=== PATIENT | female | born 1950 ===

== ENCOUNTER 2018-10-05 21:03 | Inpatient (IN) | payer MEDICARE ==
--- NOTE | 2018-10-05 21:16 | C.PDOC ---
History Of Present Illness Patient presents to the ED c/o dizziness, nausea, neck pain radiating to her left arm that started at 16:00. Patient also c/o left arm numbness and blurred vision.Very anxious. Patient denies fever, chills, vomit, diarrhea, CP, SOB, rash, Time Seen by Provider: 10/05/18 21:16 Chief Complaint (Nursing): Dizziness/Lightheaded History Per: Patient History/Exam Limitations: no limitations Onset/Duration Of Symptoms: Hrs (16:00) Current Symptoms Are (Timing): Still Present Fall Associated With With Symptoms: No Severity: None Recent travel outside of the [place]: No Additional History Per: Patient - Symptoms Of CVA Associated Symptoms: denies: Impaired Speech Recent Aspirin Use: No Current Coumadin Use?: No Recent Head Trauma: No Past Medical History Reviewed: Historical Data, Nursing Documentation, Vital Signs - Medical History PMH: Asthma, Bronchitis, Gastrointestinal Ulcer, Hypercholesterolemia Surgical History: No Surg Hx - [facility] TETANUS TOXOID ADMINIST (01/31/15) Family History: States: No Known Family Hx - Social History Hx Tobacco Use: No Hx Alcohol Use: Yes (''RARELY'') Hx Substance Use: No - Immunization History Hx Tetanus Toxoid Vaccination: No Hx Influenza Vaccination: No Hx Pneumococcal Vaccination: No Review Of Systems Constitutional: Negative for: Fever, Chills Eyes: Positive for: Other (blurry vision) Cardiovascular: Negative for: Chest Pain, Palpitations Respiratory: Negative for: Shortness of Breath Gastrointestinal: Positive for: Nausea. Negative for: Vomiting, Abdominal Pain Musculoskeletal: Positive for: Neck Pain, Arm Pain Skin: Negative for: Rash Neurological: Positive for: Weakness, Dizziness. Negative for: Numbness, Headache Psych: Negative for: Anxiety Physical Exam - Physical Exam Appears: Non-toxic, No Acute Distress Skin: Warm, Dry Head: Normacephalic Eye(s): bilateral: Normal Inspection, PERRL, EOMI Oral Mucosa: Moist Neck: No Midline Cervical Tenderness, Supple Chest: Symmetrical Cardiovascular: Rhythm Regular Respiratory: No Rales, No Rhonchi, No Wheezing Gastrointestinal/Abdominal: Soft, No Tenderness, No Guarding, No Rebound Back: No CVA Tenderness Extremity: No Pedal Edema, No Swelling Extremity: Bilateral: Atraumatic, Normal Color And Temperature, Normal ROM Pulses: Left Dorsalis Pedis: Normal, Right Dorsalis Pedis: Normal Neurological/Psych: Oriented x3, Normal Speech, Normal Cognition Gait: Unable To Assess ED Course And Treatment - Laboratory Results Result Diagrams: 10/05/18 21:23 10/05/18 21:23 ECG: Interpreted By Me, Viewed By Me ECG Rhythm: Sinus Rhythm (81), Nonspecific Changes O2 Sat by Pulse Oximetry: 99 (ON RA) Pulse Ox Interpretation: Normal - CT Scan/US CT head Other Rad Studies (CT/US): Read By Radiologist, Radiology Report Reviewed CT/US Interpretation: XAM: CT Head without Intravenous Contrast. CLINICAL HISTORY: Code stroke. TECHNIQUE: Axial computed tomography images of the head/brain without intravenous contrast. CONTRAST: Without. COMPARISON: None provided. FINDINGS: BRAIN. Chronic periventricular and subcortical microvascular disease is seen. VENTRICLES: There is generalized parenchymal atrophy noted as demonstrated by symmetrical dilatation of ventricles and sulci. ORBITS: The orbits are unremarkable. SINUSES AND MASTOIDS: The paranasal sinuses and mastoid air cells are clear. BONES: No fracture. MISCELLANEOUS: No acute intracranial pathology. IMPRESSION: 1. There is generalized parenchymal atrophy. 2. Mild chronic periventricular and subcortical microvascular disease is seen. 3. No acute intracranial pathology. . Electronically signed on October 05, 2018 9:44:45 PM EDT by: Ray Stewart M.D., M.B.A., Certified By ABR. Fellowship Trained MRI and CT Specialist CTA head Other Rad Studies (CT/US): Read By Radiologist, Radiology Report Reviewed CT/US Interpretation: EXAM: CTA Head and Neck with Intravenous Contrast. CLINICAL HISTORY: Headache, code stroke. TECHNIQUE: Axial CTA images of the head and neck performed with intravenous contrast. MIP reconstructed images were created and reviewed. CONTRAST: With; 100MLS VISI 320 was injected intravenously without incident. COMPARISON: None provided. FINDINGS: VASCULATURE: NECK: COMMON CAROTID ARTERIES. Minimal atherosclerotic plaque at the left common carotid bifurcation. No significant canal stenosis. No dissection or occlusion. EXTERNAL CAROTID ARTERIES. Patent. NECK: INTERNAL CAROTID ARTERIES. No stenosis by NASCET criteria. No dissection or occlusion. VERTEBRAL ARTERIES. No significant canal stenosis. No dissection or occlusion. HEAD: ANTERIOR CEREBRAL ARTERIES. No significant stenosis. No occlusion. No aneurysm. MIDDLE CEREBRAL ARTERIES. No significant stenosis. No occlusion. No aneurysm. POSTERIOR CEREBRAL ARTERIES. No significant stenosis. No occlusion. No aneurysm. BASILAR ARTERY. No significant stenosis. No occlusion. No aneurysm. OTHER: SOFT TISSUES. No acute finding. BONES. No acute osseous abnormality. Moderate-advanced degenerative arthritis is seen within the atlanto-dens interval. IMPRESSION: 1. Minimal atherosclerotic plaque at the left common carotid bifurcation. 2. Unremarkable CTA of the head and neck otherwise. . Electronically signed on October 05, 2018 10:00:43 PM EDT by: Ray Stewart M.D., M.B.A., Certified By ABR. Fellowship Trained MRI and CT Specialist Progress Note: Plan: - Labs. - CT head. - CTA head. - EKG. - IV fluids. - CXR. - UA NIHSS Stroke Scale 2 - Date/Time Evaluation Performed Date Performed: 10/05/18 Time Performed: 21:15 When Was NIHSS Performed: Baseline - How Severe is the Stroke Level of Consciousness: 0=Alert LOC to Questions: 0=Both comments correct LOC to commands: 0=Obeys both correctly Best Gaze: 0=Normal Visual: 0=No visual loss Facial: 0=Normal Motor Arm - Left: 0=No drift Motor Arm - Right: 0=No drift Motor Leg - Left: 0=No drift Motor Leg - Right: 0=No drift Limb Ataxia: 0=Absent Sensory: 0=Normal Best Language: 0=No aphasia Dysarthia: 0=Normal articulation Extinction & Inattention (Neglect): 0=Normal, no object Score: 0 Disposition Discussed With : James Leger Comment: acepted the p ton her service and took over the care at 11:15 PM Doctor Will See Patient In The: Hospital Counseled Patient/Family Regarding: Studies Performed, Diagnosis - Disposition Disposition: HOSPITALIZED Disposition Time: 21:16 Condition: FAIR Forms: [facility] (Greenlandic) - POA Present On Arrival: Poor Glycemic Control - Clinical Impression Clinical Impression: Chest pain, Dizziness, Paresthesia and pain of left extremity - Scribe Statement The provider has reviewed the documentation as recorded by the Scribaravind Gardiner All medical record entries made by the Scribe were at my direction and personally dictated by me. I have reviewed the chart and agree that the record accurately reflects my personal performance of the history, physical exam, medical decision making, and the department course for this patient. I have also personally directed, reviewed, and agree with the discharge instructions and disposition. Decision To Admit - Pt Status Changed To: Hospital Disposition Of: Inpatient - Admit Certification Admit to Inpatient:: After my assessment, the patient will require hospitalization for at least two midnights. This is because of the severity of symptoms shown, intensity of services needed, and/or the medical risk in this patient being treated as an outpatient. - InPatient: Physician Admission Certification: I certify that this patient requires 2 or more midnights of care for the following reason:: After my assessment, the patient will require hospitalization for at least two midnights. This is becau se of the severity of symptoms shown, intensity of services needed, and/or the medical risk in this patient being treated as an outpatient. - . Bed Request Type: Telemetry Admitting Physician: James Leger Patient Diagnosis: Chest pain, Dizziness, Paresthesia and pain of left extremity
[2018-10-05 21:17] VITALS: BMI 29.2
[2018-10-05 21:26] LABS: BASO % 0.4 % (0.0-2.0); EOS # 0.1 K/uL (0.0-0.7); EOS % 1.5 % (0.0-4.0); HEMOGLOBIN 13.9 g/dL (11.0-16.0); LYMPH % 19.7 % (20.0-40.0); MEAN CELL VOLUME 92.1 fL (81.0-99.0); MEAN CORPUSCULAR HGB CONC 33.6 g/dL (33.0-37.0); MEAN PLATELET VOLUME 8.7 fL (7.2-11.7); MONO # 0.4 K/uL (0.0-0.8); MONO % 8.1 % (0.0-10.0); NEUT # 3.6 K/uL (1.8-7.0); NEUT % 70.3 % (50.0-75.0); RBC 4.47 Mil/uL (3.80-5.20); RED CELL DISTRIBUTION WIDTH 13.6 % (11.5-14.5); WHITE BLOOD COUNT 5.2 K/uL (4.8-10.8)
[2018-10-05] MEDS ORDERED: Iodixanol 320 MG/ML 100 ML BOTTLE IV ONE (21:29)
[2018-10-05 21:34] LABS: INR 1.1; PARTIAL THROMBOPLASTIN TIME 38.4 SECONDS (21-34); PROTHROMBIN TIME 11.5 SECONDS (9.7-12.2)
[2018-10-05 21:40] LABS: ALB/GLOB RATIO 1.3 (1.0-2.1); ALBUMIN 4.3 g/dL (3.5-5.0); ALT/SGPT 20 U/L (9-52); AST/SGOT 27 U/L (14-36); BLOOD UREA NITROGEN 10 mg/dL (7-17); CALCIUM 10.5 mg/dl (8.6-10.4); GFR NON-AFRICAN AMERICAN > 60; LIPASE 68 U/L (23-300)
[2018-10-05] MEDS: Sodium Chloride 0.9% 1,000 ML IV SCH (22:00)
[2018-10-05 22:24] LABS: SQUAMOUS EPITHIAL < 1 /hpf (0-5); URINE BILIRUBIN NEGATIVE (NEGATIVE); URINE CLARITY Clear (Clear); URINE COLOR Yellow (YELLOW); URINE GLUCOSE (UA) NORMAL (Normal); URINE LEUKOCYTE ESTERASE NEG Leu/uL (Negative); URINE PROTEIN NEGATIVE (NEGATIVE); URINE UROBILINOGEN NORMAL mg/dL (0.2-1.0)
[2018-10-05 22:25] LABS: URINE BLOOD TRACE (NEGATIVE)
[2018-10-05 22:58] LABS: HDL CHOLESTEROL 51 mg/dL (30-70)
[2018-10-05 23:08] LABS: LDL CHOLESTEROL 155 mg/dL (0-129)
[2018-10-06] MEDS ORDERED: Albuterol-Ipratrop 3 mg / 0.5 (3 ml) UD INH PRN (00:09)
[2018-10-06 07:23] LABS: HDL CHOLESTEROL 36 mg/dL (30-70)
[2018-10-06 07:32] LABS: CK-MB 0.73 ng/mL (0.0-3.38)
[2018-10-06 07:33] LABS: LDL CHOLESTEROL 127 mg/dL (0-129)
--- NOTE | 2018-10-06 08:05 | CT ---
Date of service: 10/05/2018 PROCEDURE: CT HEAD WITHOUT CONTRAST. HISTORY: Code Stroke COMPARISON: 05/09/2016 TECHNIQUE: Axial computed tomography images were obtained through the head/brain without intravenous contrast. Radiation dose: Total exam DLP = 970.64 mGy-cm. This CT exam was performed using one or more of the following dose reduction techniques: Automated exposure control, adjustment of the mA and/or kV according to patient size, and/or use of iterative reconstruction technique. FINDINGS: HEMORRHAGE: No intracranial hemorrhage. BRAIN: No mass effect or edema. Scattered focal lucencies in the subcortical and periventricular white matter suggestive for chronic microvascular ischemic change. Diffuse generalized parenchymal atrophy. VENTRICLES: Unremarkable. No hydrocephalus. CALVARIUM: Unremarkable. PARANASAL SINUSES: Unremarkable as visualized. No significant inflammatory changes. MASTOID AIR CELLS: Unremarkable as visualized. No inflammatory changes. OTHER FINDINGS: None. IMPRESSION: No acute intracranial abnormality. Chronic microvascular ischemic changes. Diffuse generalized parenchymal atrophy. If symptoms persists, consider correlation with MRI. A preliminary report was generated at 9:44 p.m. on 10/05/[address] Ray Stewart from [facility].
[2018-10-06 08:24] VITALS: RESP 20
--- NOTE | 2018-10-06 09:22 | CP.PCM.PN ---
Subjective - Date & Time of Evaluation Date of Evaluation: 10/06/18 Time of Evaluation: 09:22 - Subjective Subjective: H&P dictated #[id number] Objective - Vital Signs/Intake and Output Vital Signs (last 24 hours): Temp Pulse Resp BP Pulse Ox 98.7 F 84 20 136/66 97 10/06/18 08:23 10/06/18 08:23 10/06/18 08:23 10/06/18 08:23 10/06/18 08:23 Intake and Output: 10/06/18 10/06/18 06:59 18:59 Intake Total 800 Balance 800 - Medications Medications: Current Medications Albuterol/Ipratropium (Duoneb 3 Mg/0.5 Mg (3 Ml) Ud) 3 ml INH RQ6 PRN PRN Reason: Shortness of Breath Aspirin (Aspirin) 325 mg PO DAILY [facility] Heparin Sodium (Porcine) (Heparin) 5,000 units SC Q12 [facility] Sodium Chloride (Sodium Chloride 0.9%) 1,000 mls @ 100 mls/hr IV .Q10H [facility] Last Admin: 10/05/18 22:00 Dose: 100 mls/hr Metoprolol Tartrate (Lopressor) 25 mg PO BID [facility] Montelukast Sodium (Singulair) 10 mg PO DAILY [facility] Pneumococcal Polyvalent Vaccine (Pneumovax 23 Vaccine) 0.5 ml IM .ONCE ONE Stop: 10/06/18 10:01 - Labs Labs: 10/05/18 21:23 10/05/18 21:23 PT 11.5 SECONDS (9.7-12.2) 10/05/18 21: INR 1.1 10/05/18 21:23 APTT 38.4 SECONDS (21-34) H 10/05/18 21:23
[2018-10-06] MEDS ORDERED: ALBUTEROL SULFATE PO SCH (10:00)
[2018-10-06] MEDS ORDERED: Pneumococcal 23-Valent Vaccine IM ONE (10:00)
[2018-10-06] MEDS: Sodium Chloride 0.9% 1,000 ML IV SCH ×2 (10:12→17:39)
--- NOTE | 2018-10-06 10:30 | CP.PCM.CON ---
<Brad Kim ValerianoGennaro - Last Filed: 10/06/18 15:44> History of Present Illness - History of Present Illness History of Present Illness: PGY-1 Neurology consult note for Dr Sanders Patient is a 68 year old female with pmhx of asthma, HLD, presenting to ER yesterday for dizziness and left neck pain with bilateral upper extremity weakness. Patient states these symptoms started around 4 pm yesterday when patient was sewing at work. Patient states she felt she could not grab or lift light objects, as she noted object fell off her hands. Patient experienced left side neck pain with pain and tingling radiating down to the left arm. Patient experienced shortness of breath chest pain and nausea along with the mentioned symptoms. Denies falls or LOC this time, but has had history of falls and LOC, last one about 6 months ago. Patient states her left sided neck pain, UE weakness and tingling have improved since admission, admits to swelling in her eyes and dizziness this morning when getting up from bed. Denies headaches, changes in vision or hearing. Denies changes in speech, denies weakness in LE. Denies hx of stroke, [facility] REP infections or seizures. 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 Fhx: stroke ( mother), unspecified cancer (sister) Past Patient History - Past Medical History & Family History Past Medical History?: Yes - Past Social History Smoking Status: Never Smoked - CARDIAC Hx Hypercholesterolemia: Yes - PULMONARY Hx Asthma: Yes Hx Bronchitis: Yes - MUSCULOSKELETAL/RHEUMATOLOGICAL Hx Falls: No - PSYCHIATRIC Hx Substance Use: No - SURGICAL HISTORY Hx Surgeries: Yes Hx Hysterectomy: Yes - ANESTHESIA Hx Anesthesia: Yes Hx Anesthesia Reactions: No Meds Allergies/Adverse Reactions: Allergies Allergy/AdvReac Type Severity Reaction Status Date / Time meperidine Allergy RASH Verified 05/09/16 18:53 - Medications Medications: Current Medications Albuterol/Ipratropium (Duoneb 3 Mg/0.5 Mg (3 Ml) Ud) 3 ml INH RQ6 PRN PRN Reason: Shortness of Breath Aspirin (Aspirin) 325 mg PO DAILY [facility] Last Admin: 10/06/18 10:11 Dose: 325 mg Heparin Sodium (Porcine) (Heparin) 5,000 units SC Q12 [facility] Last Admin: 10/06/18 10:12 Dose: 5,000 units Sodium Chloride (Sodium Chloride 0.9%) 1,000 mls @ 100 mls/hr IV .Q10H [facility] Last Admin: 10/06/18 10:12 Dose: 100 mls/hr Metoprolol Tartrate (Lopressor) 25 mg PO BID [facility] Last Admin: 10/06/18 10:11 Dose: 25 mg Montelukast Sodium (Singulair) 10 mg PO HS [facility] Rosuvastatin Calcium (Crestor) 10 mg PO HS [facility] Physical Exam - Constitutional Appears: Non-toxic, No Acute Distress - Head Exam Head Exam: ATRAUMATIC, NORMAL INSPECTION, NORMOCEPHALIC - Eye Exam Eye Exam: EOMI, Normal appearance, PERRL Pupil Exam: NORMAL ACCOMODATION - ENT Exam ENT Exam: Mucous Membranes Moist, Normal Exam - Neck Exam Neck exam: Positive for: Normal Inspection. Negative for: Tenderness - Respiratory Exam Respiratory Exam: NORMAL BREATHING PATTERN - Extremities Exam Extremities exam: Positive for: normal inspection. Negative for: tenderness - Neurological Exam Neurological exam: Alert, CN II-XII Intact, Oriented x3, Reflexes Normal - Expanded Neurological Exam Expanded Patient oriented to: person, place, time Speech: Fluid Speech Cranial nerves: EOM's Intact: Normal, Facial Palsey w/Forehead Movement: Normal, Facial Palsey w/o Forehead Movement: Normal, Facial Sensation: Normal, Nystagmus: Normal, Tongue Deviation: Normal Cerebellar Function: Finger to Nose: Normal, Heel to Young: Normal, Romberg: No rmal Upper motor neuron: Pronator Drift: Normal Sensory exam: Lower Extremity Light Touch: Normal, Upper Extremity Light Touch: Normal Neuro motor strength exam: Left Upper Extremity: 4, Right Upper Extremity: 5, Left Lower Extremity: 5, Right Lower Extremity: 5 DTR: Patellar Left: 1+, Patellar Right: 1+ - Psychiatric Exam Psychiatric exam: Normal Affect, Normal Mood Results - Vital Signs Recent Vital Signs: Last Vital Signs Temp 98.7 F 10/06/18 08:23 Pulse 84 10/06/18 08:23 Resp 20 10/06/18 08:23 BP 137/70 10/06/18 10:11 Pulse Ox 97 10/06/18 08:23 - Labs Result Diagrams: 10/05/18 21:23 10/05/18 21:23 Labs: Laboratory Results - last 24 hr 10/05/18 10/05/18 10/05/18 21:12 21:23 21:23 WBC 5.2 RBC 4.47 Hgb 13.9 Hct 41.2 MCV 92.1 MCH 31.0 MCHC 33.6 RDW 13.6 Plt Count 190 MPV 8.7 Neut % (Auto) 70.3 Lymph % (Auto) 19.7 L [place] % (Auto) 8.1 Eos % (Auto) 1.5 Baso % (Auto) 0.4 Neut # (Auto) 3.6 Lymph # (Auto) 1.0 Edmonson # (Auto) 0.4 Eos # (Auto) 0.1 Baso # (Auto) 0.0 PT 11.5 INR 1.1 APTT 38.4 H Sodium Potassium Chloride Carbon Dioxide Anion Gap BUN Creatinine Est GFR ( Amer) Est GFR (Non-Af Amer) POC Glucose (mg/dL) 126 H Random Glucose Hemoglobin A1c Calcium Total Bilirubin AST ALT Alkaline Phosphatase Total Creatine Kinase CK-MB (Mass) Troponin I NT-Pro-B Natriuret Pep Total Protein Albumin Globulin Albumin/Globulin Ratio Triglycerides Cholesterol LDL Cholesterol Direct HDL Cholesterol Lipase Urine Color Urine Clarity Urine pH Ur Specific [place] Urine Protein Urine Glucose (UA) Urine Ketones Urine Blood Urine Nitrate Urine Bilirubin Urine Urobilinogen Ur Leukocyte Esterase Urine WBC (Auto) Urine RBC (Auto) Ur Squamous Epith Cells Blood Type Antibody Screen 10/05/18 10/05/18 10/05/18 21:23 21:28 21:29 WBC RBC Hgb Hct MCV MCH MCHC RDW Plt Count MPV Neut % (Auto) Lymph % (Auto) Edmons[place] % (Auto) Eos % (Auto) Baso % (Auto) Neut # (Auto) Lymph # (Auto) Edmons[place] # (Auto) Eos # (Auto) Baso # (Auto) PT INR APTT Sodium 139 Potassium 4.0 Chloride 104 Carbon Dioxide 24 Anion Gap 15 BUN 10 Creatinine 0.6 L Est GFR ( Amer) > 60 Est GFR (Non-Af Amer) > 60 POC Glucose (mg/dL) Random Glucose 120 H Hemoglobin A1c Calcium 10.5 H Total Bilirubin 0.7 AST 27 ALT 20 Alkaline Phosphatase 120 Total Creatine Kinase CK-MB (Mass) Troponin I < 0.0120 NT-Pro-B Natriuret Pep 26.0 Total Protein 7.7 Albumin 4.3 Globulin 3.4 Albumin/Globulin Ratio 1.3 Triglycerides 188 H Cholesterol 239 H LDL Cholesterol Direct 155 H HDL Cholesterol 51 Lipase 68 Urine Color Urine Clarity Urine pH Ur Specific [place] Urine Protein Urine Glucose (UA) Urine Ketones Urine Blood Urine Nitrate Urine Bilirubin Urine Urobilinogen Ur Leukocyte Esterase Urine WBC (Auto) Urine RBC (Auto) Ur Squamous Epith Cells Blood Type O POSITIVE Antibody Screen Negative 10/05/18 10/05/18 10/06/18 21:29 22:13 06:40 WBC RBC Hgb Hct MCV MCH MCHC RDW Plt Count MPV Neut % (Auto) Lymph % (Auto) Edmons[place] % (Auto) Eos % (Auto) Baso % (Auto) Neut # (Auto) Lymph # (Auto) Edmons[place] # (Auto) Eos # (Auto) Baso # (Auto) PT INR APTT Sodium Potassium Chloride Carbon Dioxide Anion Gap BUN Creatinine Est GFR ( Amer) Est GFR (Non-Af Amer) POC Glucose (mg/dL) Random Glucose Hemoglobin A1c 5.7 Calcium Total Bilirubin AST ALT Alkaline Phosphatase Total Creatine Kinase 72 CK-MB (Mass) 0.73 Troponin I < 0.0120 NT-Pro-B Natriuret Pep Total Protein Albumin Globulin Albumin/Globulin Ratio Triglycerides 149 D Cholesterol 192 LDL Cholesterol Direct 127 HDL Cholesterol 36 Lipase Urine Color Yellow Urine Clarity Clear Urine pH 5.0 Ur Specific Lynx 1.050 H Urine Protein Negative Urine Glucose (UA) Normal Urine Ketones Negative Urine Blood Trace H Urine Nitrate Negative Urine Bilirubin Negative Urine Urobilinogen Normal Ur Leukocyte Esterase Neg Urine WBC (Auto) 1 Urine RBC (Auto) 1 Ur Squamous Epith Cells < 1 Blood Type Antibody Screen 10/06/18 06:40 WBC RBC Hgb Hct MCV MCH MCHC RDW Plt Count MPV Neut % (Auto) Lymph % (Auto) Edmonson % (Auto) Eos % (Auto) Baso % (Auto) Neut # (Auto) Lymph # (Auto) Edmons[place] # (Auto) Eos # (Auto) Baso # (Auto) PT INR APTT Sodium Potassium Chloride Carbon Dioxide Anion Gap BUN Creatinine Est GFR ( Amer) Est GFR (Non-Af Amer) POC Glucose (mg/dL) Random Glucose Hemoglobin A1c 5.7 Calcium Total Bilirubin AST ALT Alkaline Phosphatase Total Creatine Kinase CK-MB (Mass) Troponin I NT-Pro-B Natriuret Pep Total Protein Albumin Globulin Albumin/Globulin Ratio Triglycerides Cholesterol LDL Cholesterol Direct HDL Cholesterol Lipase Urine Color Urine Clarity Urine pH Ur Specific [place] Urine Protein Urine Glucose (UA) Urine Ketones Urine Blood Urine Nitrate Urine Bilirubin Urine Urobilinogen Ur Leukocyte Esterase Urine WBC (Auto) Urine RBC (Auto) Ur Squamous Epith Cells Blood Type Antibody Screen Assessment & Plan - Assessment and Plan (Free Text) Plan: 68 year old female with left>right upper extremity weakness, tingling and left neck pain started yesterday, symptoms resolved today, possible TIA, CT head shows no acute IC abnormalities, chronic microvascular changes, diffuse generalized atrophy, CTA head and neck shows no endoluminal thrombus, occlusion or definite stenosis in intracranial arteries 1. ASA 81mg Po daily and plavix 75mg PO Daily for 3 weeks, then d/c ASA and continue plavix 2. continue crestor 10 PO HS 3. ordered TSH, free T4, B12, folate, vitamin D 4. recommend outpatient MRI 5. continue medical management as primary team 6. Neuro will sign off, reconsult PRN Plan d/w Dr Marilyn Kim, PGY-1 - Date & Time Date: 10/06/18 Time: 10:00 <Keo Sanders - Last Filed: 10/08/18 15:30> Results - Vital Signs Recent Vital Signs: Last Vital Signs Temp 97.9 F 10/07/18 15:15 Pulse 80 10/07/18 15:20 Resp 20 10/07/18 15:15 BP 148/78 10/07/18 18:02 Pulse Ox 98 10/07/18 15:15 - Labs Result Diagrams: 10/07/18 07:20 10/07/18 07:20 Attending/Attestation - Attestation I have personally seen and examined this patient.: Yes I have fully participated in the care of the patient.: Yes I have reviewed all pertinent clinical information: Yes Notes (Text): I agree with the assessment and plan as outlined above.
--- NOTE | 2018-10-06 11:29 | RAD ---
HISTORY: Code Stroke COMPARISON: None available TECHNIQUE: Chest, one view. FINDINGS: Examination limited by habitus. LUNGS: No focal consolidation. Please note that chest x-ray has limited sensitivity for the detection of pulmonary masses. PLEURA: No significant pleural effusion identified. No definite pneumothorax . CARDIOVASCULAR: Heart size appears top normal. Atherosclerotic calcifications of the aorta. OSSEOUS STRUCTURES: Degenerative changes. VISUALIZED UPPER ABDOMEN: Unremarkable. OTHER FINDINGS: None. IMPRESSION: No focal consolidation.
--- NOTE | 2018-10-06 13:18 | CT ---
Date of service: 10/05/2018 PROCEDURE: CTA HEAD AND NECK WITH CONTRAST HISTORY: Headache COMPARISON: None available. TECHNIQUE: Initial noncontrast head CT was performed. Subsequently, CT angiogram of the head and neck were performed after the intravenous administration of 80 mL of Omnipaque 350. Contiguous 1.5mm thick images were obtained in the axial plane of the neck. 2-D coronal and sagittal MPR images were obtained. Imaging postprocessing was performed with 3-D images also obtained. A delayed contrast head CT was also obtained. This CT exam was performed using one or more of the following dose reduction techniques: Automated exposure control, adjustment of the mA and/or kV according to patient size, and/or use of iterative reconstruction technique. Contrast dose: 100 mL Visipaque 320 Radiation dose: Total exam DLP = 625.85 mGy-cm. FINDINGS: HEAD: Right: The intracranial internal carotid artery, and anterior and middle cerebral arteries are widely patent. Left: The intracranial internal carotid artery, and anterior and middle cerebral arteries are widely patent. Posterior circulation: The visualized intracranial vertebral arteries, basilar artery and posterior cerebral arteries are widely patent. There is origin of bilateral posterior cerebral arteries with hypoplastic vertebrobasilar system, an anatomic variant. There is no endoluminal filling defect to suggest thrombus. There is no intracranial saccular aneurysm. NECK: There is a 2 vessel aortic arch with common origins of the innominate and left common carotid arteries. There is no stenosis at the origins of the great vessels at the level of the aortic arch. There are early atherosclerotic calcifications in the proximal internal carotid arteries, more conspicuous the left. Right Carotid: On the right, the common carotid, internal carotid and external carotid arteries are widely patent. There is no hemodynamically significant stenosis in the internal carotid artery by NASCET criteria. Left Carotid: On the left, the common carotid, internal carotid and external carotid arteries are widely patent. There is no hemodynamically significant stenosis in the internal carotid artery by NASCET criteria. The vertebral arteries are widely patent. The vertebral artery is hypoplastic, an anatomic variant. The visualized soft tissues of the neck are normal. The visualized brain and cervical spine are within normal limits. The lung apices are clear. IMPRESSION: 1. No evidence of endoluminal thrombus,occlusion or definite significant stenosis in the intracranial arteries. 2. No evidence of hemodynamically significant stenosis in the internal carotid arteries. 3. Patent bilateral vertebral arteries. A preliminary report was provided by [facility].
[2018-10-06 14:33] LABS: CK-MB 0.63 ng/mL (0.0-3.38)
--- NOTE | 2018-10-06 14:42 | CP.PCM.CON ---
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 No chest pain or LOC. No kwown CAD. Non smoker, no diabetes. ECG is normal, Echo is normal , no arrhythmias seen. Review of Systems - Review of Systems All systems: reviewed and no additional remarkable complaints except (as above) Past Patient History - Past Medical History & Family History Past Medical History?: Yes - Past Social History Smoking Status: Never Smoked - CARDIAC Hx Hypercholesterolemia: Yes - PULMONARY Hx Asthma: Yes Hx Bronchitis: Yes - MUSCULOSKELETAL/RHEUMATOLOGICAL Hx Falls: No - PSYCHIATRIC Hx Substance Use: No - SURGICAL HISTORY Hx Surgeries: Yes Hx Hysterectomy: Yes - ANESTHESIA Hx Anesthesia: Yes Hx Anesthesia Reactions: No Meds Allergies/Adverse Reactions: Allergies Allergy/AdvReac Type Severity Reaction Status Date / Time meperidine Allergy RASH Verified 05/09/16 18:53 - Medications Medications: Current Medications Albuterol/Ipratropium (Duoneb 3 Mg/0.5 Mg (3 Ml) Ud) 3 ml INH RQ6 PRN PRN Reason: Shortness of Breath Aspirin (Aspirin) 325 mg PO DAILY [facility] Last Admin: 10/06/18 10:11 Dose: 325 mg Heparin Sodium (Porcine) (Heparin) 5,000 units SC Q12 [facility] Last Admin: 10/06/18 10:12 Dose: 5,000 units Sodium Chloride (Sodium Chloride 0.9%) 1,000 mls @ 100 mls/hr IV .Q10H [facility] Last Admin: 10/06/18 10:12 Dose: 100 mls/hr Metoprolol Tartrate (Lopressor) 25 mg PO BID [facility] Last Admin: 10/06/18 10:11 Dose: 25 mg Montelukast Sodium (Singulair) 10 mg PO HS [facility] Rosuvastatin Calcium (Crestor) 10 mg PO HS [facility] Physical Exam - Constitutional Appears: Well - Head Exam Head Exam: ATRAUMATIC - Eye Exam Eye Exam: EOMI - ENT Exam ENT Exam: Mucous Membranes Moist - Neck Exam Neck exam: Positive for: Normal Inspection - Respiratory Exam Respiratory Exam: Clear to Auscultation Bilateral - Cardiovascular Exam Cardiovascular Exam: REGULAR RHYTHM - GI/Abdominal Exam GI & Abdominal Exam: Normal Bowel Sounds - Exam Exam: NORMAL INSPECTION External exam: NORMAL EXTERNAL EXAM - Extremities Exam Extremities exam: Positive for: normal inspection - Back Exam Back exam: NORMAL INSPECTION - Neurological Exam Neurological exam: Alert, Oriented x3, Reflexes Normal - Psychiatric Exam Psychiatric exam: Normal Affect, Normal Mood Results - Vital Signs Recent Vital Signs: Last Vital Signs Temp 98.7 F 10/06/18 08:23 Pulse 95 H 10/06/18 11:02 Resp 20 10/06/18 08:23 BP 137/70 10/06/18 10:11 Pulse Ox 97 10/06/18 08:23 - Labs Result Diagrams: 10/05/18 21:23 10/05/18 21:23 Labs: Laboratory Results - last 24 hr 10/05/18 10/05/18 10/05/18 21:12 21:23 21:23 WBC 5.2 RBC 4.47 Hgb 13.9 Hct 41.2 MCV 92.1 MCH 31.0 MCHC 33.6 RDW 13.6 Plt Count 190 MPV 8.7 Neut % (Auto) 70.3 Lymph % (Auto) 19.7 L Wilkes % (Auto) 8.1 Eos % (Auto) 1.5 Baso % (Auto) 0.4 Neut # (Auto) 3.6 Lymph # (Auto) 1.0 Wilkes # (Auto) 0.4 Eos # (Auto) 0.1 Baso # (Auto) 0.0 PT 11.5 INR 1.1 APTT 38.4 H Sodium Potassium Chloride Carbon Dioxide Anion Gap BUN Creatinine Est GFR ( Amer) Est GFR (Non-Af Amer) POC Glucose (mg/dL) 126 H Random Glucose Hemoglobin A1c Calcium Total Bilirubin AST ALT Alkaline Phosphatase Total Creatine Kinase CK-MB (Mass) Troponin I NT-Pro-B Natriuret Pep Total Protein Albumin Globulin Albumin/Globulin Ratio Triglycerides Cholesterol LDL Cholesterol Direct HDL Cholesterol Lipase Urine Color Urine Clarity Urine pH Ur Specific Weed Urine Protein Urine Glucose (UA) Urine Ketones Urine Blood Urine Nitrate Urine Bilirubin Urine Urobilinogen Ur Leukocyte Esterase Urine WBC (Auto) Urine RBC (Auto) Ur Squamous Epith Cells Blood Type Antibody Screen 10/05/18 10/05/18 10/05/18 21:23 21:28 21:29 WBC RBC Hgb Hct MCV MCH MCHC RDW Plt Count MPV Neut % (Auto) Lymph % (Auto) Wilkes % (Auto) Eos % (Auto) Baso % (Auto) Neut # (Auto) Lymph # (Auto) Wilkes # (Auto) Eos # (Auto) Baso # (Auto) PT INR APTT Sodium 139 Potassium 4.0 Chloride 104 Carbon Dioxide 24 Anion Gap 15 BUN 10 Creatinine 0.6 L Est GFR ( Amer) > 60 Est GFR (Non-Af Amer) > 60 POC Glucose (mg/dL) Random Glucose 120 H Hemoglobin A1c Calcium 10.5 H Total Bilirubin 0.7 AST 27 ALT 20 Alkaline Phosphatase 120 Total Creatine Kinase CK-MB (Mass) Troponin I < 0.0120 NT-Pro-B Natriuret Pep 26.0 Total Protein 7.7 Albumin 4.3 Globulin 3.4 Albumin/Globulin Ratio 1.3 Triglycerides 188 H Cholesterol 239 H LDL Cholesterol Direct 155 H HDL Cholesterol 51 Lipase 68 Urine Color Urine Clarity Urine pH Ur Specific Weed Urine Protein Urine Glucose (UA) Urine Ketones Urine Blood Urine Nitrate Urine Bilirubin Urine Urobilinogen Ur Leukocyte Esterase Urine WBC (Auto) Urine RBC (Auto) Ur Squamous Epith Cells Blood Type O POSITIVE Antibody Screen Negative 10/05/18 10/05/18 10/06/18 21:29 22:13 06:40 WBC RBC Hgb Hct MCV MCH MCHC RDW Plt Count MPV Neut % (Auto) Lymph % (Auto) Wilkes % (Auto) Eos % (Auto) Baso % (Auto) Neut # (Auto) Lymph # (Auto) Wilkes # (Auto) Eos # (Auto) Baso # (Auto) PT INR APTT Sodium Potassium Chloride Carbon Dioxide Anion Gap BUN Creatinine Est GFR ( Amer) Est GFR (Non-Af Amer) POC Glucose (mg/dL) Random Glucose Hemoglobin A1c 5.7 Calcium Total Bilirubin AST ALT Alkaline Phosphatase Total Creatine Kinase 72 CK-MB (Mass) 0.73 Troponin I < 0.0120 NT-Pro-B Natriuret Pep Total Protein Albumin Globulin Albumin/Globulin Ratio Triglycerides 149 D Cholesterol 192 LDL Cholesterol Direct 127 HDL Cholesterol 36 Lipase Urine Color Yellow Urine Clarity Clear Urine pH 5.0 Ur Specific Weed 1.050 H Urine Protein Negative Urine Glucose (UA) Normal Urine Ketones Negative Urine Blood Trace H Urine Nitrate Negative Urine Bilirubin Negative Urine Urobilinogen Normal Ur Leukocyte Esterase Neg Urine WBC (Auto) 1 Urine RBC (Auto) 1 Ur Squamous Epith Cells < 1 Blood Type Antibody Screen 10/06/18 10/06/18 06:40 14:00 WBC RBC Hgb Hct MCV MCH MCHC RDW Plt Count MPV Neut % (Auto) Lymph % (Auto) Wilkes % (Auto) Eos % (Auto) Baso % (Auto) Neut # (Auto) Lymph # (Auto) Wilkes # (Auto) Eos # (Auto) Baso # (Auto) PT INR APTT Sodium Potassium Chloride Carbon Dioxide Anion Gap BUN Creatinine Est GFR ( Amer) Est GFR (Non-Af Amer) POC Glucose (mg/dL) Random Glucose Hemoglobin A1c 5.7 Calcium Total Bilirubin AST ALT Alkaline Phosphatase Total Creatine Kinase 58 CK-MB (Mass) 0.63 Troponin I < 0.0120 NT-Pro-B Natriuret Pep Total Protein Albumin Globulin Albumin/Globulin Ratio Triglycerides Cholesterol LDL Cholesterol Direct HDL Cholesterol Lipase Urine Color Urine Clarity Urine pH Ur Specific Weed Urine Protein Urine Glucose (UA) Urine Ketones Urine Blood Urine Nitrate Urine Bilirubin Urine Urobilinogen Ur Leukocyte Esterase Urine WBC (Auto) Urine RBC (Auto) Ur Squamous Epith Cells Blood Type Antibody Screen - EKG Data EKG shows normal: Sinus rhythm Rate: Normal (normal) Assessment & Plan - Assessment and Plan (Free Text) Assessment: 1, Numbness, arm weakness. Consider cervical radiculopathy 2. Normal echo, BP, CV exam, no arrhythmias noted. 3. LDL is 155, consider statin. 4. If MRI shows stroke, consider other testing such as event loop recorder, and or UMM.
--- NOTE | 2018-10-06 17:08 | CARD ---
APPROVED REPORT Date of service: 10/06/2018 EXAM: Two-dimensional and M-mode echocardiogram with Doppler and color Doppler. Other Information Quality : GoodRhythm : INDICATION Dizziness and Vertigo Chest Pain 2D DIMENSIONS IVSd0.8 (0.7-1.1cm)LVDd4.5 (3.9-5.9cm) PWd1.0 (0.7-1.1cm)LA Kkwvsg34 (18-58mL) LVDs2.6 (2.5-4.0cm)FS (%) 41.3 % LVEF (%)72.3 (>50%)LVEF (Gregg's)67.82 % M-Mode DIMENSIONS Left Atrium (MM)2.97 (2.5-4.0cm)IVSd0.72 (0.7-1.1cm) Aortic Root2.81 (2.2-3.7cm)LVDd4.82 (4.0-5.6cm) Aortic Cusp Exc.1.78 (1.5-2.0cm)PWd0.76 (0.7-1.1cm) FS (%) 33 %LVDs3.24 (2.0-3.8cm) LVEF (%)61 (>50%) Mitral Valve MV E Wieprdyt25.9cm/sMV A Qwnjeuvc39.7cm/sE/A ratio0.7 TDI Lateral E' Peak V7.97cm/sMedial E' Peak V6.80cm/sE/Lateral E'9.1 E/Medial E'10.7 Tricuspid Valve TR Peak Zotcyllz020ph/sTR Peak [id number] LEFT VENTRICLE The left ventricle is normal size. There is normal left ventricular wall thickness. The left ventricular function is normal. The left ventricular ejection fraction is within the normal range. There is normal LV segmental wall motion. Transmitral Doppler flow pattern is normal for age. RIGHT VENTRICLE The right ventricle is normal size. The right ventricular systolic function is normal. ATRIA The left atrium size is normal. The right atrium size is normal. The interatrial septum is intact with no evidence for an atrial septal defect. AORTIC VALVE The aortic valve is normal in structure. No aortic regurgitation is present. There is no aortic valvular stenosis. MITRAL VALVE The mitral valve is normal in structure. Mitral regurgitation is trace. TRICUSPID VALVE The tricuspid valve is normal in structure. There is mild tricuspid regurgitation. There is no pulmonary hypertension. PULMONIC VALVE The pulmonary valve is normal in structure. There is trace to mild pulmonic valvular regurgitation. GREAT VESSELS The aortic root is normal in size. The IVC is normal in size and collapses >50% with inspiration. PERICARDIAL EFFUSION There is no pericardial effusion. <Conclusion> Normal bi-ventricular function. Insignificant mitral, tricuspid and pulmonic regurgitation. No pericardial effusion.
--- NOTE | 2018-10-06 23:17 | HP ---
CHIEF COMPLAINT: Left upper extremity, left facial weakness, and chest pain left sided started yesterday at work. HISTORY OF PRESENT ILLNESS: Ms. Aguilera is a 68-year-old female with past medical history of asthma, who has been following up with Dr. Jazmin Mir as primary care physician, came in to the emergency room with complaints of left upper extremity weakness which started yesterday while at work. All the history obtained from the patient via a Luxembourger speaking sand screener who is an RN. As per the patient, while she was at work around 4 p.m. yesterday, she was not able to hold things with her left hand, felt a strange sensation. 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 Denied any drooling, denied any weakness in the lower extremity. The hand pain started initially, then started having left shoulder pain and felt tingling and numbness and the neck pain. Her symptoms were progressing which made her come to the emergency room. She claims that she felt nauseous, dizziness, and also had headache when all the symptoms started. Along with these symptoms, she complains of left-sided chest tightness associated with dizziness. The chest tightness was in the middle of the chest, nonradiating; no shortness of breath. When she came into the emergency room, her chest pain got better but her weakness still persisted. In the emergency room, the patient was evaluated and admitted for further management and evaluation. When I examined the patient, she complains of headache, left facial numbness, and feeling different sensation in the left side of the face and left arm weakness is slightly better than yesterday but still feels different. Denies any lower extremity weakness. Denies any chest pain, shortness of breath, or wheezing. Denies any nausea, vomiting, abdominal pain, diarrhea or constipation. Denies any urinary complaints. Denies any leg pain pains, leg cramps. She is able to swallow without any difficulty. PAST MEDICAL HISTORY: As described asthma. PAST SURGICAL HISTORY: Underwent total abdominal hysterectomy. FAMILY HISTORY: CVA in mother and sister had cancer. PERSONAL HISTORY: She is a , having 3 children, lives alone. 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 SOCIAL HISTORY: Denied smoking, alcohol or drug abuse. ALLERGIES: SHE IS ALLERGIC TO DEMEROL, SHE DEVELOPS BLISTERS. MEDICATIONS: At home include: Albuterol and Singulair daily. REVIEW OF SYSTEMS: As described in history of present illness. All other systems reviewed and were found to be negative. PHYSICAL EXAMINATION: GENERAL: Elderly female, lying in bed, in no acute distress. VITAL SIGNS: Blood pressure 136/66, pulse 84, respirations 20, temperature 98.7 degrees Fahrenheit, O2 sat 97% on room air. HEENT: Pupils are equal, round and reacting to light and accommodation. Extraocular muscles are intact. No icterus. No pallor. No oral thrush. No pharyngeal congestion. NECK: Supple. No JVD. LUNGS: Bilateral vesicular breath sounds. No wheezing. No rhonchi. CARDIOVASCULAR SYSTEM: S1 and S2 present, regular. ABDOMEN: Soft and nontender. Bowel sounds are present. No guarding. No rigidity. No rebound tenderness noted. CENTRAL NERVOUS SYSTEM: Alert, awake, oriented x3. Left upper extremity weakness noted. Right upper extremity power 5/5, left upper extremity 4/5. Decreased sensation in the left side of the face. Cranial nerves II through XII are grossly intact. No weakness in the left lower extremity. Gait is not tested. EXTREMITIES: No edema. Palpable peripheral pulses. LABORATORY DATA: Labs done from the emergency room: WBC 5.2, hemoglobin 13.9, hematocrit 41.2, platelets 190. PT 11.5, INR 1.1, PTT 38.4. Sodium 139, potassium 4, chloride 104, bicarb 24, BUN 10, creatinine 0.6, glucose 126, hemoglobin A1c 5.7, calcium 10.5, total bilirubin 0.7, AST 27, ALT 20, alkaline phosphatase 120. Cardiac enzymes x2 negative. Pro-BNP 26, total protein 7.7, albumin 4.3. triglycerides 188, cholesterol 239, LDL 155, HDL 51, lipase 68. UA: Specific gravity 1.050, pH 5, blood trace, otherwise negative. Chest x-ray, negative for any infiltrate. Head CT, no acute intracranial abnormality, chronic microvascular ischemic changes, diffuse generalized parenchymal atrophy. CTA head and neck, preliminary report negative. Echocardiogram pending. EKG: Consistent with normal sinus rhythm at 81 beats per minute. No acute ST-T changes. ASSESSMENT AND PLAN: Elderly female with history of asthma, who has been following up with Dr. Jazmin Mir, came into the emergency room with left-sided weakness and left facial decreased sensation which is still persistent and left-sided neck pain. In the ED, all the workup so far is negative and the patient is being admitted for further management. 1. Left upper extremity weakness and left facial weakness, rule out cerebrovascular accident, rule out secondary cervical radiculopathy. 2. Asthma, stable. 3. Hyperlipidemia. 4. Chest pain in a patient with multiple risk factors, rule out acute coronary syndrome. PLAN: The patient is being admitted to telemetry. We will do serial cardiac enzymes, serial EKGs. We will check echocardiogram. We will give aspirin 325 mg daily and metoprolol 25 mg p.o. b.i.d. We will obtain cardiology evaluation with Dr. Hernandez who is on-call. We will follow up with Neurology. The Neurology was called from ED. We will obtain MRI of the brain and cervical spine. We will add Crestor. Continue with bronchodilators as needed. Monitor her blood pressure. Follow up with the echo report. We will add further recommendation as her clinical course progresses. James Leger MD
[2018-10-07] MEDS: Sodium Chloride 0.9% 1,000 ML IV SCH ×3 (04:16→13:18)
[2018-10-07 07:28] LABS: BASO % 0.4 % (0.0-2.0); EOS # 0.2 K/uL (0.0-0.7); EOS % 3.3 % (0.0-4.0); HEMOGLOBIN 12.8 g/dL (11.0-16.0); LYMPH # 1.2 K/uL (1.0-4.3); LYMPH % 25.1 % (20.0-40.0); MEAN CELL VOLUME 91.5 fL (81.0-99.0); MEAN CORPUSCULAR HEMOGLOBIN 31.5 pg (27.0-31.0); MEAN CORPUSCULAR HGB CONC 34.4 g/dL (33.0-37.0); MEAN PLATELET VOLUME 8.6 fL (7.2-11.7); MONO # 0.3 K/uL (0.0-0.8); MONO % 7.1 % (0.0-10.0); NEUT % 64.1 % (50.0-75.0); NRBC % 0.1 % (0.0-2.0); RBC 4.06 Mil/uL (3.80-5.20); RED CELL DISTRIBUTION WIDTH 13.5 % (11.5-14.5); WHITE BLOOD COUNT 4.7 K/uL (4.8-10.8)
[2018-10-07 07:41] LABS: ALB/GLOB RATIO 1.4 (1.0-2.1); ALBUMIN 3.3 g/dL (3.5-5.0); ALT/SGPT 28 U/L (9-52); AST/SGOT 27 U/L (14-36); BLOOD UREA NITROGEN 9 mg/dL (7-17); GFR NON-AFRICAN AMERICAN > 60
[2018-10-07 09:27] LABS: FOLATE 12.5 ng/mL
--- NOTE | 2018-10-07 09:44 | CP.PCM.PN ---
Subjective - Date & Time of Evaluation Date of Evaluation: 10/07/18 Time of Evaluation: 09:44 - Subjective Subjective: Discharge summary dictated #[id number] Objective - Vital Signs/Intake and Output Vital Signs (last 24 hours): Temp Pulse Resp BP Pulse Ox 99.4 F 85 20 120/61 94 L 10/07/18 08:44 10/07/18 08:44 10/07/18 08:44 10/07/18 09:25 10/07/18 08:44 - Medications Medications: Current Medications Albuterol/Ipratropium (Duoneb 3 Mg/0.5 Mg (3 Ml) Ud) 3 ml INH RQ6 PRN PRN Reason: Shortness of Breath Aspirin (Aspirin Chewable) 81 mg PO DAILY [facility] Last Admin: 10/07/18 09:28 Dose: 81 mg Clopidogrel Bisulfate (Plavix) 75 mg PO DAILY [facility] Last Admin: 10/07/18 09:28 Dose: 75 mg Heparin Sodium (Porcine) (Heparin) 5,000 units SC Q12 [facility] Last Admin: 10/07/18 09:27 Dose: 5,000 units Sodium Chloride (Sodium Chloride 0.9%) 1,000 mls @ 100 mls/hr IV .Q10H [facility]PLACED [facility] Last Admin: 10/07/18 04:16 Dose: Not Given Metoprolol Tartrate (Lopressor) 25 mg PO BID [facility] Last Admin: 10/07/18 09:25 Dose: 25 mg Montelukast Sodium (Singulair) 10 mg PO HS [facility] Last Admin: 10/06/18 21:37 Dose: 10 mg Rosuvastatin Calcium (Crestor) 10 mg PO HS [facility]PL[facility] Last Admin: 10/06/18 21:37 Dose: 10 mg - Labs Labs: 10/07/18 07:20 10/07/18 07:20 PT 11.5 SECONDS (9.7-12.2) 10/05/18 21:23 INR 1.1 10/05/18 21:23 APTT 38.4 SECONDS (21-34) H 10/05/18 21:23
--- NOTE | 2018-10-07 10:17 | MRI ---
Date of service: 10/06/2018 PROCEDURE: MR CERVICAL SPINE WITHOUT CONTRAST HISTORY: r/o cva COMPARISON: Unenhanced cervical spine CT 01/31/2015. TECHNIQUE: Multiecho multiplanar sequences were performed through the cervical spine without the use of intravenous contrast. FINDINGS: Straightened curvature in the interval. Craniocervical junction unremarkable. Vertebral body heights preserved. No marrow signal abnormality. Normal cervical cord. No paraspinal abnormality. C2-C3: No disc herniation, spinal canal stenosis or neural foraminal narrowing. C3-C4: No disc herniation, spinal canal stenosis or neural foraminal narrowing. Minimal annular tear noted posteriorly. C4-C5: No large disc herniation, spinal canal stenosis or neural foraminal narrowing. A small central disc protrusion may overlie posterior longitudinal ligament prominent at the mid posterior epidural space and encroach ventral nerve roots somewhat without significant stenosis. C5-C6: No large disc herniation, spinal canal stenosis or neural foraminal narrowing. A small central disc protrusion may overlie posterior longitudinal ligament prominence encroaching but not necessarily impinging ventral nerve roots at this level without central canal stenosis. C6-C7: Borderline central stenosis caused by limited disc bulging. Posterior disc bulge encroaches if not impinging ventral nerve roots symmetrically. Widely patent bilateral neural foramina. No disc herniation. C7-T1: No disc herniation, spinal canal stenosis or neural foraminal narrowing. OTHER FINDINGS: IMPRESSION: 1. Straightened cervical curvature. 2. Small central disc protrusion at C4-5 and C5-6 may overlie prominence of the posterior longitudinal ligament and encroach ventral nerve roots at these levels without causing central canal stenosis. 3. Minimal posterior annular tear C3-4. 4. Minimal disc bulges at C6-7 and C7-T1 encroach if not impinges ventral nerve roots with a borderline central stenosis present at C6-7 but not at C7-T1. Preliminary report provided by Mikey, 10/06/2018, 8:08 p.m..
--- NOTE | 2018-10-07 10:21 | MRI ---
Date of service: 10/06/2018 PROCEDURE: MRI BRAIN WITHOUT CONTRAST HISTORY: cva COMPARISON: Unenhanced head CT 10/05/2018. TECHNIQUE: Multiplanar, multisequence MR images of the brain were obtained without intravenous contrast enhancement. FINDINGS: HEMORRHAGE: None DWI: No evidence of an acute or early subacute infarction. BRAIN PARENCHYMA: Good corticomedullary differentiation is seen. Proportional, diffuse expansion of the ventriculosulcal and cisternal spaces is appreciated with white matter lucency compatible with diffuse cerebral atrophy and chronic microangiopathy. No suspicious extra-axial fluid collection is identified and the midline brain anatomy appears grossly nonfocal as imaged. There is no mass effect throughout. VENTRICLES: Unremarkable. No hydrocephalus. CRANIUM: Unremarkable. ORBITS: Grossly unremarkable. PARANASAL SINUSES/MASTOIDS: Limited mucosal inflammatory changes affect multiple ethmoid air cells bilaterally. VASCULAR SYSTEM: Skull base flow voids intact. OTHER FINDINGS: None. IMPRESSION: Limited age-related neuro degenerative change are identified which are less than that expected for the patient's stated age of 68 years. No significant interval change from prior CT 10/05/2018. No acute intracranial findings.
--- NOTE | 2018-10-07 11:56 | CARD ---
APPROVED REPORT Date of service: 10/06/2018 EKG Measurement Heart [id number] NC [id number] <Conclusion> Normal sinus rhythm Normal ECG
--- NOTE | 2018-10-07 11:57 | CARD ---
APPROVED REPORT Date of service: 10/05/2018 EKG Measurement Heart [id number] NC [id number] <Conclusion> Normal sinus rhythm Normal ECG
[2018-10-07 16:05] VITALS: PULSE 80
[2018-10-07 16:16] VITALS: TEMP 97.9; O2SAT 98
[2018-10-07] MEDS ORDERED: Ergocalciferol 50,000 Intl Units Cap PO SCH (17:15)
[2018-10-07 18:02] VITALS: BP 148/78
--- NOTE | 2018-10-08 21:46 | DS ---
DISCHARGE DIAGNOSES: Left upper extremity weakness, possible cervical radiculopathy, asthma, hyperlipidemia, vitamin D deficiency, low B12 levels. HISTORY OF PRESENT ILLNESS: Ms. Aguilera is a 68-year-old female with past medical history of asthma, has been following up with Dr. Nava as primary care physician, came in to the emergency room with left upper extremity weakness and left facial decreased sensation while she was at work. The patient was admitted for possible TIA, rule out CVA. Today, the patient is feeling better, denies any headache or dizziness, denies any chest pain, shortness of breath, or wheezing, denies any nausea, vomiting, abdominal pain, diarrhea, or constipation, and denies any urinary complaints. Left upper extremity weakness is better. Denies any other new complaints. PHYSICAL EXAMINATION: GENERAL: An elderly female, lying in bed, in no acute distress. VITAL SIGNS: Blood pressure 146/74, pulse 70, respirations 20, temperature 97.9 degrees Fahrenheit, and O2 saturations 98% on room air. HEENT: Pupils equal, round, and reacting to light and accommodation. Extraocular muscles are intact. No icterus, no pallor, no oral thrush, and no pharyngeal congestion. NECK: Supple, no JVD. LUNGS: Bilateral vesicular breath sounds. No wheezing, no rhonchi. CARDIOVASCULAR SYSTEM: S1 and S2 present, regular. ABDOMEN: Soft and nontender. Bowel sounds present. No guarding, no rigidity, and no rebound tenderness noted. CENTRAL NERVOUS SYSTEM: Alert, awake, and oriented x3. Left upper extremity power 4-5/5. EXTREMITIES: No edema, palpable peripheral pulses. LABORATORY DATA: Labs done from this morning; WBC 4.7, hemoglobin 12.8, hematocrit 37.2, platelets 160, sodium 136, potassium 3.9, chloride 105, bicarbonate 24, BUN 9, creatinine 0.5, and glucose 100. LFTs within normal limits. Cholesterol 192, triglycerides 149, LDL 127, HDL 36, B12 of 290, vitamin D 12.8, folate 12.5, and TSH 4.83. UA is negative. Echocardiogram normal biventricular function, EF 72%. CT of the head negative. CT angiogram, no evidence of endoluminal thrombus or occlusion. No evidence of hemodynamically significant stenosis. Chest x-ray negative for any infiltrate. MRI of the brain, no acute intracranial findings. Cervical spine MRI, straightened cervical curvature, small central disc protrusion at C4-C5 and C5-C6, minimal posterior annular tear C3-C4, minimal disc bulge at C6-C7, C7-T1, encroach on to ventral nerve roots. HOSPITAL COURSE: The patient was admitted to the hospital to rule out CVA. The patient underwent all the neurological workup. Everything is negative except cervical radiculopathy with pinched nerve. The patient was evaluated by Cardiology and Neurology. The patient was started on aspirin and Plavix. Neurology recommended aspirin for 3 weeks along with Plavix followed by continuously Plavix and Crestor 10 mg p.o. at bedtime. Will continue as per Neurology recommendation. The patient is cleared by Cardiology, did not recommend any further cardiac workup. The patient was evaluated by physical therapy and recommended outpatient physical therapy. As the patient is otherwise hemodynamically stable, the patient is being discharged. We have advised the patient to follow up with all the consultants and primary care physician and to obtain physical therapy as outpatient. CONDITION UPON DISCHARGE: The patient is alert, awake, and oriented x3 and hemodynamically stable at the time of discharge. DISCHARGE INSTRUCTIONS: Follow up with PMD, follow up with Neurology, and follow up with Cardiology and outpatient physical therapy. DISCHARGE DIET: Heart-healthy diet. ACTIVITY: As tolerated. DISCHARGE MEDICATIONS: Crestor 10 mg p.o. daily, Plavix 75 mg daily, aspirin 81 mg daily for 3 weeks, Singulair daily, albuterol inhaler as needed, vitamin D 50,000 units p.o. weekly, and B12 of 1000 mcg p.o. daily. OTHER DISCHARGE INSTRUCTIONS: Advised the patient to return to the emergency room or call the PMD if any worsening of her symptoms. James Leger MD
== END 2018-10-07 18:54 | disposition home or self-care (01) | DRG 74 ==
LOC: C.ER 21:03 → C.6T 23:12
PROVIDERS: ADMIT Internal Medicine; ATTEND Internal Medicine
DX: M54.12 Radiculopathy, cervical region (principal); R42 Dizziness and giddiness; R20.2 Paresthesia of skin; R07.9 Chest pain, unspecified; J45.909 Unspecified asthma, uncomplicated; R29.810 Facial weakness; G58.9 Mononeuropathy, unspecified; E78.5 Hyperlipidemia, unspecified; E78.00 Pure hypercholesterolemia, unspecified; Z87.11 Personal history of peptic ulcer disease; Z90.710 Acquired absence of both cervix and uterus; Z91.81 History of falling; Z82.3 Family history of stroke; Z80.9 Family history of malignant neoplasm, unspecified; E55.9 Vitamin D deficiency, unspecified